=== PATIENT | female | born 1965 | race Caucasian/White ===

== ENCOUNTER 2016-12-30 08:15 | Outpatient (RCR) ==
--- NOTE | 2016-12-28 15:20 | RS.OPPTEV2 ---
Date of Note: 12/28/16 Visit #: 1 Date of Evaluation: 12/28/16 Payer Source: Insurance Surgery Performed?: No Treatment Diagnosis: Left shoulder pain History of Condition/Mechanism of Injury:: Patient reports no known injury. Reports pain has just progressively gotten worse. Prior Level of Function.....Patient was independent with: ADL's, Self Care, Work /Vocation, Caregiving, Ambulation/Mobility, Community Integration/Access Functional Limitations: Sleep, Self Care, ADL's, Reaching, Pushing, Pulling, Lifting, Carrying, Community Access/Integration Current Subjective/complaints:: Patient reports she was told she has a tiny tear in the RTC of the left shoulder and that it is not significant enough for surgery. States the shoulder hurts mainly at night and with reaching. States she has had two injections, the most recent helped and was received a week or two ago. She denies tingling or numbness into the right UE. She has difficulty laying on the left shoulder. She has to change positions frequently due to pain. Treatment Side (optional): Left Medical History Medical History: Unremarkable Smoking Status: Never smoker Diagnostic Testing/Imaging:: States MRI showed a "tiny" tear in a rotator cuff muscle. Requested copy of MRI results. Hx Home Medications: Meloxicam Patient's Goals: Her goal is to get relief of left shoulder pain. Pain Assessment - Pain Description Pain Location: left shoulder Pain Description: Sharp (with reaching), Aching Current Pain Intensity: 8/10 Worst Pain Intensity: 10/10 Functional Outcome Measure UE Functional Index: 50 (50/80=37.5% impairment) - G Codes & Severity Modifier G Codes & Modifier: NA Source of G Code score: NA Observation - Observation Posture: Forward Head, Rounded Shoulders Handedness: Right Shoulder ROM: Right WFL's Shoulder Muscle Strength: Right WFL's (generally 4+/5) - Left Shoulder ROM Left Shoulder Flexion: 95 (degrees AROM, pain starts at 80 degrees) Left Shoulder Abduction: 85 (degrees AROM) Left Shoulder External Rotation: 42 (degrees AROM) Left Shoulder ROM Limitations: Pain Comments: Passive flexion with pain stopping motion at 95 degrees. - Left Shoulder Strength Left Shoulder Flexion: 4 Good Left Shoulder Extension: 4+ Good + Left Shoulder Abduction: 4 Good Left Shoulder Adduction: 4+ Good + Left Shoulder External Rotation: 4 Good Left Shoulder Internal Rotation: 4- Good- - Special Tests Shoulder Empty Can (Supraspinatus) Test: Positive Left Shoulder Speed's Sign Test: Positive Left Shoulder Drop Arm Test: Negative Left Shoulder Hassan-Manuel Impingement Test: Positive Left In Tube Conversion Technician Strength Left Hand In Tube Conversion Technician Strength: 42 lbs. Right Hand In Tube Conversion Technician Strength: 50 lbs. Dynamometer Testing Position: 2nd Position Palpation Comments:: Patient reports pain over the long head of the biceps tendon in the bicipital groove of the left shoulder. Tenderness with moderate pressure over the insertion of the supraspinatus tendon. Sensation - Sensation Right Upper Extremity: Intact/Normal Left Upper Extremity: Intact/Normal Interventions - Exercise/Activities/Manual Therapy Exercises/Activities: Patient instructed in HEP of pendulm exercises, scapular retraction, and RTC series in pendulum position . Advised to perform RTC in a pain-free range. Manual Therapy: NA HOME EXERCISE PROGRAM: pendulm exercises, scapular retraction, and RTC series in pendulum position . Advised to perform RTC in a pain-free range - Charges Total Direct Minutes: 45 mins Total Treatment Time: 45 mins Procedures billed for this date of service:: LUIS F Gunn Assessment Assessment: Patient presents to therapy with a diagnosis of a tear of the left rotator cuff. She demonstrates functional AROM, but pain makes using the left UE for selfcare, ADL's, and functional reaching difficult. She demonstrates general weakness of the left shoulder. She will benefit from modalities and GH joint strengthening to reduce her pain. Patient will also benefit from posture education and exercises to reduce strain on RTC . Patient Education: Education of diagnosis, Body/Joint mechanics, Home Exercise Program, Home Safety, Activity Modification, Education of Plan of Care Rehab Potential: Good Short Term Goals Goal #1: Patient independent in basic HEP. Goal to be met by: 01/11/17 Goal #2: Left shoulder AROM to 120 degrees without pain. Goal to be met by: 01/11/17 Goal #3: Pt to demonstrate improved postural awareness. Goal to be met by: 01/11/17 Goal #4: Right shoulder strength 4+/5 throughout. Goal to be met by: 01/11/17 [facility] Goals Goal #1: Pt knows HEP and to cont. Ex's to maintain functional level at D/C. Goal to be met by: 02/01/17 Goal #2: Score on UE functional scale improved to <15% impairment. Goal to be met by: 02/01/17 Goal #3: Pt able to use left UE for selfcare, ADL's,and functional reaching w/o pain Goal to be met by: 02/01/17 Goal #4: Patient able to sleep at night without waking from left shoulder pain. Goal to be met by: 02/01/17 Plan - Treatment to be Provided Procedures: Therapeutic Exercises, Therapeutic Activity, Patient Education Modalities: Ultrasound/Phonophoresis, Cryotherapy, Hot Packs - Treatment Plan Frequency: 2-3 X week Duration: 3 weeks ORDER # VISITS AND/OR THROUGH DATE: 02/01/17 - Treatment Code (1) Shoulder pain, left Qualifiers: Chronicity: acute Qualified Description: Acute pain of left shoulder Qualifier Code(s): (M25.512) Pain in left shoulder (2) Rotator cuff tear Qualifiers: Rotator cuff tear extent: unspecified tear extent Laterality: left Qualified Description: Tear of left rotator cuff, unspecified tear extent Qualifier Code(s): (M75.102) Unspecified rotator cuff tear or rupture of left shoulder, not specified as traumatic
--- NOTE | 2016-12-30 09:26 | RS.OPPTDN ---
Subjective Date of Note: 12/30/16 Visit #: 2 Date of Evaluation: 12/28/16 Payer Source: Insurance Treatment Diagnosis: Left shoulder pain Current Subjective/complaints:: Patient reports getting to try her HEP a few times. States she has difficulty relaxing with pendulum exercise. Reports more discomfort with abduction during RTC series, but remembered to keep ROM within pain-free range. Reports shoulder feels pretty good after treatment. Pain Assessment - Pain Description Pain Location: left shoulder Pain Description: Sharp (with reaching), Aching Current Pain Intensity: not rated - Treatment Modality: Ultrasound Parameters/Method Applied: 3 mins @ 1.5 w/cm2 continuous, 6 mins @ 1.0 w/cm2 pulsed 20% over insertion site of supraspinatus tendon. Patient Position: Sitting - Heat/Cryotherapy Treatment: Hot Pack (X 15 mins to left shoulder prior to US) Interventions - Exercise/Activities/Manual Therapy Exercises/Activities: Patient demonstrated RTC series, stating abduction causes most discomfort. Pt performs RTC series correctly. Performed resisted scapular stabilization with blue tubing pulling into shoulder flexion. Patient given red theraband and instructed in scapular retraction. Advised she could try the pendulum exercise and RTC series while lying prone on her bed with the left arm hanging off the side. Total minutes of Exercise: 16 mins Manual Therapy: NA HOME EXERCISE PROGRAM: pendulm exercises, scapular retraction, and RTC series in pendulum position . Advised to perform RTC in a pain-free range - Charges Total Direct Minutes: 25 mins Total Treatment Time: 40 mins Procedures billed for this date of service:: HP, US, EX Assessment: Patient demonstrates being receptive to instructions and compliant with HEP. She reports less pain following treatment today. She will benefit from continued activities and exercises to reduce swelling and strengthening the GH joint. Patient Education: Education of diagnosis, Body/Joint mechanics, Home Exercise Program Patient demonstrates compliance with HEP?: Yes Short Term Goals Goal #1: Patient independent in basic HEP. Goal to be met by: 01/11/17 Progress towards Goal:: Progressing Goal #2: Left shoulder AROM to 120 degrees without pain. Goal to be met by: 01/11/17 Goal #3: Pt to demonstrate improved postural awareness. Goal to be met by: 01/11/17 Progress towards Goal:: Progressing Goal #4: Right shoulder strength 4+/5 throughout. Goal to be met by: 01/11/17 Correction Goals Goal #1: Pt knows HEP and to cont. Ex's to maintain functional level at D/C. Goal to be met by: 02/01/17 Goal #2: Score on UE functional scale improved to <15% impairment. Goal to be met by: 02/01/17 Goal #3: Pt able to use left UE for selfcare, ADL's,and functional reaching w/o pain Goal to be met by: 02/01/17 Goal #4: Patient able to sleep at night without waking from left shoulder pain. Goal to be met by: 02/01/17 Plan PLAN OF CARE EXPIRES ON:: 02/01/17 ORDER # VISITS AND/OR THROUGH DATE: 02/01/17 PLAN: Progress Exercises
== END 2017-01-01 ==
PROVIDERS: ATTEND Orthopaedic Surgery
DX: M75.102 Unspecified rotator cuff tear or rupture of left shoulder, not specified as traumatic (principal)

== ENCOUNTER 2017-01-10 08:15 | Outpatient (RCR) ==
--- NOTE | 2017-01-02 09:00 | RS.OPPTDN ---
Subjective Date of Note: 01/02/17 Visit #: 3 Date of Evaluation: 12/28/16 Payer Source: Insurance Treatment Diagnosis: Left shoulder pain Current Subjective/complaints:: Patient reports shoulder felt better after last visit. States she is performing exercises with the red theraband. Pain Assessment - Pain Description Pain Location: left shoulder Current Pain Intensity: not rated - Treatment Modality: Ultrasound Parameters/Method Applied: 1.5 w/cm2 X 5 mins continuous, thne 1.2 w/cm2 @ 20% pulsed X 5 mins to the right shoulder with emphasis over the insertion site of the supraspinatus tendons. Patient Position: Supine - Heat/Cryotherapy Treatment: Hot Pack (X15 mins to right shoulder ) Interventions - Exercise/Activities/Manual Therapy Exercises/Activities: Performed resisted scapular stabilization with blue tubing pulling into shoulder flexion. Also performed scapular retraction with red theraband X 15 reps. Total minutes of Exercise: X 6 mins Manual Therapy: NA HOME EXERCISE PROGRAM: pendulm exercises, scapular retraction, and RTC series in pendulum position . Advised to perform RTC in a pain-free range - Charges Total Direct Minutes: 16 mins Total Treatment Time: 31 mins Procedures billed for this date of service:: HP, US Assessment: Patient reports the left renetta feels better following last treatment sessions. Reports performing HEP in pain free range. Patient demonstrates compliance with HEP?: Yes Short Term Goals Goal #1: Patient independent in basic HEP. Goal to be met by: 01/11/17 Progress towards Goal:: Progressing Goal #2: Left shoulder AROM to 120 degrees without pain. Goal to be met by: 01/11/17 Goal #3: Pt to demonstrate improved postural awareness. Goal to be met by: 01/11/17 Progress towards Goal:: Progressing Goal #4: Right shoulder strength 4+/5 throughout. Goal to be met by: 01/11/17 Banquet Chef Goals Goal #1: Pt knows HEP and to cont. Ex's to maintain functional level at D/C. Goal to be met by: 02/01/17 Goal #2: Score on UE functional scale improved to <15% impairment. Goal to be met by: 02/01/17 Goal #3: Pt able to use left UE for selfcare, ADL's,and functional reaching w/o pain Goal to be met by: 02/01/17 Goal #4: Patient able to sleep at night without waking from left shoulder pain. Goal to be met by: 02/01/17 Plan PLAN OF CARE EXPIRES ON:: 02/01/17 ORDER # VISITS AND/OR THROUGH DATE: 02/01/17 PLAN: Progress Exercises
--- NOTE | 2017-01-05 10:50 | RS.OPPTDN ---
Subjective Date of Note: 01/05/17 Visit #: 4 Date of Evaluation: 12/28/16 Payer Source: Insurance Treatment Diagnosis: Left shoulder pain Current Subjective/complaints:: Patient c/o ache today due to weather. She mentions the R shoulder is beginning to hurt too. She is unsure if it from compensation or not, but does say she has been performing the same HEP for that shoulder too. Reports continued difficulty with fastening undergarments and says she can raise her arm above her head at times with no pain, and other times , it is very painful. Pain Assessment - Pain Description Pain Location: left shoulder Pain Description: Tightness, Aching Current Pain Intensity: not rated - Treatment Modality: Ultrasound Parameters/Method Applied: continuous @ 1.5 w/cm2 x 5 mins to the L shoulder and UT and then 5 mins pulsed @ 1.0 w/cm2 Patient Position: Sitting - Heat/Cryotherapy Treatment: Hot Pack (L UT and shoulder in sitting x 20) Interventions - Exercise/Activities/Manual Therapy Exercises/Activities: Performed shoulder shrugs, scap adduction, isometric IR/ER , 1# wand for bilateral UE flexion, Red tband for scap retraction, shoulder flexion, extension, bilateral shoulder ER. All x 10 reps. Total minutes of Exercise: 20 Manual Therapy: NA HOME EXERCISE PROGRAM: pendulm exercises, scapular retraction, and RTC series in pendulum position . Advised to perform RTC in a pain-free range - Charges Total Direct Minutes: 30 Total Treatment Time: 50 Procedures billed for this date of service:: hp, u/s, ex Assessment: Patient admits soreness improving with treatment today and able to perform therex without any grimacing or c/o's verbally. She should improve with further strengthening. Patient Education: Education of diagnosis, Body/Joint mechanics, Home Exercise Program, Home Safety, Activity Modification, Education of Plan of Care Patient demonstrates compliance with HEP?: Yes Short Term Goals Goal #1: Patient independent in basic HEP. Goal to be met by: 01/11/17 Progress towards Goal:: Progressing Goal #2: Left shoulder AROM to 120 degrees without pain. Goal to be met by: 01/11/17 Goal #3: Pt to demonstrate improved postural awareness. Goal to be met by: 01/11/17 Progress towards Goal:: Progressing Goal #4: Right shoulder strength 4+/5 throughout. Goal to be met by: 01/11/17 Senior Game Developer Goals Goal #1: Pt knows HEP and to cont. Ex's to maintain functional level at D/C. Goal to be met by: 02/01/17 Goal #2: Score on UE functional scale improved to <15% impairment. Goal to be met by: 02/01/17 Goal #3: Pt able to use left UE for selfcare, ADL's,and functional reaching w/o pain Goal to be met by: 02/01/17 Goal #4: Patient able to sleep at night without waking from left shoulder pain. Goal to be met by: 02/01/17 Plan PLAN OF CARE EXPIRES ON:: 02/01/17 ORDER # VISITS AND/OR THROUGH DATE: 02/01/17 PLAN: Progress Exercises
--- NOTE | 2017-01-10 09:57 | RS.OPPTDN ---
Subjective Date of Note: 01/10/17 Visit #: 5 Date of Evaluation: 12/28/16 Payer Source: Insurance Treatment Diagnosis: Left shoulder pain Current Subjective/complaints:: Patient says her arm feels the same. She describes it as someone had "frogged" her in the upper L arm. Pain Assessment - Pain Description Pain Location: left shoulder Pain Description: Tightness, Aching Current Pain Intensity: not rated - Treatment Modality: Ultrasound Parameters/Method Applied: continuous @ 1.5 w/cm2 x 8 mins, 3 mins pulsed @ 1.0 w/cm2 to L mid deltoid Patient Position: Sitting - Heat/Cryotherapy Treatment: Hot Pack (over the L shoulder in sitting x 20 mins) Interventions - Exercise/Activities/Manual Therapy Exercises/Activities: Performed shoulder shrugs, scap adduction, isometric IR/ER , 1# wand for bilateral UE flexion, PROM all dir, isometric shoulder flex/ext 2x5. Total minutes of Exercise: 10 Manual Therapy: NA HOME EXERCISE PROGRAM: pendulm exercises, scapular retraction, and RTC series in pendulum position . Advised to perform RTC in a pain-free range - Charges Total Direct Minutes: 21 Total Treatment Time: 41 Procedures billed for this date of service:: hp, u/s, MT Assessment: Patient unable to see significant change, but felt MT helped today. She demo good mobility, but does have soreness with resisted IR/ER. Patient Education: Education of diagnosis, Body/Joint mechanics, Home Exercise Program, Home Safety, Activity Modification, Education of Plan of Care Patient demonstrates compliance with HEP?: Yes Short Term Goals Goal #1: Patient independent in basic HEP. Goal to be met by: 01/11/17 Progress towards Goal:: Progressing Goal #2: Left shoulder AROM to 120 degrees without pain. Goal to be met by: 01/11/17 Goal #3: Pt to demonstrate improved postural awareness. Goal to be met by: 01/11/17 Progress towards Goal:: Progressing Goal #4: Right shoulder strength 4+/5 throughout. Goal to be met by: 01/11/17 Transportation Museum Helper Goals Goal #1: Pt knows HEP and to cont. Ex's to maintain functional level at D/C. Goal to be met by: 02/01/17 Goal #2: Score on UE functional scale improved to <15% impairment. Goal to be met by: 02/01/17 Goal #3: Pt able to use left UE for selfcare, ADL's,and functional reaching w/o pain Goal to be met by: 02/01/17 Goal #4: Patient able to sleep at night without waking from left shoulder pain. Goal to be met by: 02/01/17 Plan PLAN OF CARE EXPIRES ON:: 02/01/17 ORDER # VISITS AND/OR THROUGH DATE: 02/01/17 PLAN: Progress Exercises
--- NOTE | 2017-01-13 08:59 | RS.CXNS ---
Date of scheduled appointment: 01/13/17 Type: Cancel Reason for Cancel/NS: not feeling well, will call to reschedule next week
--- NOTE | 2017-02-08 15:30 | RS.QUICKDC ---
Discharge from PT Date of Discharge: 02/08/17 Number of Visits: 5 Reason for Discharge: Patient had received treatment of moist heat, u/s, MT to the neck and shoulder , and therex. She had reported very little change in symptoms and c/o tenderness to the L upper arm and limited ROM. She received a HEP and education on diagnosis and treatment provided. No goals were met as she cancelled her last scheduled appt and did not contact us for further PT. See daily notes for specific information.
== END 2017-02-01 ==
PROVIDERS: ATTEND Orthopaedic Surgery
DX: M75.102 Unspecified rotator cuff tear or rupture of left shoulder, not specified as traumatic (principal)

== ENCOUNTER 2017-03-02 10:00 | Outpatient (RCR) ==
--- NOTE | 2017-02-10 15:05 | RS.OPPTEV2 ---
Date of Note: 02/09/17 Visit #: 1 Date of Evaluation: 02/09/17 Payer Source: Insurance Surgery Performed?: No Treatment Diagnosis: UE pain, cervical radiculopathy History of Condition/Mechanism of Injury:: Patient reports no known injury. Reports pain has progressive increased. Prior Level of Function.....Patient was independent with: ADL's, Self Care, Work /Vocation, Caregiving, Ambulation/Mobility, Community Integration/Access Functional Limitations: Sleep, Self Care, ADL's, Reaching, Pushing, Pulling, Lifting, Carrying, Community Access/Integration Current Subjective/complaints:: Patient reports having continued left shoulder UE pain and now right UE pain. States she has had symptoms for approximately seven months. States she hurts a lot at night. States the left shoulder still hurts with certain movements. She was referred for further tests and has being diagnosed with cervical spine involvement and was sent for therapy. Medical History Medical History: Unremarkable Smoking Status: Never smoker Hx Home Medications: Neurontin 300 mg, 2X day Patient's Goals: Her goal is to get relief of UE's symptoms. Pain Assessment - Pain Description Pain Location: left shoulder and upper arm Current Pain Intensity: 7/10 Worst Pain Intensity: 9/10 Functional Outcome Measure Neck Disability Index: 12 - G Codes & Severity Modifier G Codes & Modifier: NA Source of G Code score: NA Observation - Observation Posture: Forward Head, Rounded Shoulders Handedness: Right - ROM Comments: Cervical AROM and shoulder AROM is WFL's. Cervical extension and right rotation at end range cause slight increased discomfort into the left scapula. - Strength Comments: 5/5 throughout bilateral UE's. - Special Tests Foraminal Compression: Negative Left, Negative Right VA Test: Negative Thoracic Outlet Test: Negative Left, Negative Right - Special Tests Shoulder Empty Can (Supraspinatus) Test: Positive Left Shoulder Drop Arm Test: Negative Left Shoulder Hassan-Manuel Impingement Test: Positive Left Scheduler Maintenance Strength Left Hand Scheduler Maintenance Strength: 40 lbs. Right Hand Scheduler Maintenance Strength: 50 lbs. Dynamometer Testing Position: 2nd Position Palpation Comments:: Patient demonstrates moderate increased muscle tone along bilateral upper traps and cervical paraspinals. Reports no tenderness throughout this area or with palpation to the suboccipital myofascia. Sensation - Sensation Right Upper Extremity: Intact/Normal Left Upper Extremity: Intact/Normal - Heat/Cryotherapy Treatment: Hot Pack (X 10 mins to cervical spine prior to traction) - Traction Treatment Method: Mechanical, Intermittent, Cervical Patient Position: Supine Amount of Force Applied: 14-15 lbs. Hold Time: 30 sec Rest Time: 5 sec Interventions - Exercise/Activities/Manual Therapy Exercises/Activities: Patient instructed in stretching to the cervical spine into rotation and lateral flexion. Advised to perform these as long as they don 't cause increased radicular symptoms. Also instructed in scapular retraction and scapular depression. Manual Therapy: NA HOME EXERCISE PROGRAM: stretching to the cervical spine into rotation and lateral flexion. Advised to perform these as long as they don't cause increased radicular symptoms. Also instructed in scapular retraction and scapular depression. - Charges Total Direct Minutes: 50 mins Total Treatment Time: 50 mins Procedures billed for this date of service:: LUIS F Gunn Assessment Assessment: Patient presents to therapy with a diagnosis of cervical radiculopathy. She reports constant symptoms into the left UE and occasional symptoms into the right. She reports no impaired sensation and no lack of strength in the UE's. She does exhibit moderate increased muscle tone along the upper traps and cervical paraspinals. End range cervical right rotation and extension causes radiating pain to the left scapula. She also demonstrates symptoms that are overlapping from the left RTC. She will benefit from treatment of cervical traction, stretching, and postural exercises to reduce her radiating symptoms. Patient Education: Education of diagnosis, Body/Joint mechanics, Home Exercise Program, Home Safety, Activity Modification, Education of Plan of Care Rehab Potential: Good Short Term Goals Goal #1: Patient independent in basic HEP. Goal to be met by: 02/24/17 Goal #2: Pt to report left UE symptoms no longer constant. Goal to be met by: 02/24/17 Goal #3: Radiating symptoms localized. Goal to be met by: 02/24/17 Goal #4: Muscle tone at bilateral upper traps decreased to minimal. Goal to be met by: 02/24/17 Mortar Mixer Operator Goals Goal #1: Pt knows HEP and to cont. Ex's to maintain functional level at D/C. Goal to be met by: 03/27/17 Goal #2: Score on Neck Disability Index improved to 0. Goal to be met by: 03/27/17 Goal #3: Pt to perform ADL's & functional activities w/o radiating pain into UE' s. Goal to be met by: 03/27/17 Goal #4: Pt to demonstrate improved postural awareness. Goal to be met by: 03/27/17 Plan - Treatment to be Provided Procedures: Therapeutic Exercises, Therapeutic Activity, Manual Therapy, Patient Education Modalities: Electrical Stimulation, Ultrasound/Phonophoresis, Cryotherapy, Hot Packs, Mechanical Traction (cervical) - Treatment Plan Frequency: 2 X week Duration: 6 weeks ORDER # VISITS AND/OR THROUGH DATE: 03/27/17 - Treatment Code (1) Cervical radiculopathy Comments: M54.12
--- NOTE | 2017-02-13 10:51 | RS.CXNS ---
Date of scheduled appointment: 02/13/17 Type: No Show
--- NOTE | 2017-02-14 12:01 | RS.OPPTDN ---
Subjective Date of Note: 02/14/17 Visit #: 2 Date of Evaluation: 02/09/17 Payer Source: Insurance Treatment Diagnosis: UE pain, cervical radiculopathy Current Subjective/complaints:: Patient says traction felt good, but hopes she will experience extended relief with progressive traction poundage. She arrives with her own heat pad while sitting in waiting room. Pain Assessment - Pain Description Pain Location: left shoulder and upper arm Pain Description: Tightness Current Pain Intensity: 4-5/10 - Treatment Modality: Ultrasound Parameters/Method Applied: continuous @ 1.5 w/cm2 x 12 mins after traction bilateral UT Patient Position: Sitting - Traction Treatment Method: Mechanical, Intermittent, Cervical Patient Position: Supine Amount of Force Applied: 16-17 Hold Time: 25 Rest Time: 5 Duration of treatment: 16 Traction Treatment Comment: 2 steps with 1# minimal hold Interventions - Exercise/Activities/Manual Therapy Exercises/Activities: Reviewed HEP and postural techniques. Manual Therapy: NA HOME EXERCISE PROGRAM: stretching to the cervical spine into rotation and lateral flexion. Advised to perform these as long as they don't cause increased radicular symptoms. Also instructed in scapular retraction and scapular depression. - Charges Total Direct Minutes: 12 Total Treatment Time: 29 Procedures billed for this date of service:: u/s, mechanical traction Assessment: Patient experiencing relief from today's traction. She remains attentive to progressing traction and techniques. She demo mod muscle guarding to Bilateral UT, but primarily to the L. Patient Education: Education of diagnosis, Body/Joint mechanics, Home Exercise Program, Home Safety, Activity Modification, Education of Plan of Care Patient demonstrates compliance with HEP?: Yes Short Term Goals Goal #1: Patient independent in basic HEP. Goal to be met by: 02/24/17 Progress towards Goal:: Progressing Goal #2: Pt to report left UE symptoms no longer constant. Goal to be met by: 02/24/17 Goal #3: Radiating symptoms localized. Goal to be met by: 02/24/17 Goal #4: Muscle tone at bilateral upper traps decreased to minimal. Goal to be met by: 02/24/17 Director Security Risk Management Goals Goal #1: Pt knows HEP and to cont. Ex's to maintain functional level at D/C. Goal to be met by: 03/27/17 Goal #2: Score on Neck Disability Index improved to 0. Goal to be met by: 03/27/17 Goal #3: Pt to perform ADL's & functional activities w/o radiating pain into UE' s. Goal to be met by: 03/27/17 Goal #4: Pt to demonstrate improved postural awareness. Goal to be met by: 03/27/17 Plan PLAN OF CARE EXPIRES ON:: 03/27/17 ORDER # VISITS AND/OR THROUGH DATE: 03/27/17 PLAN: Continue Plan of Care
--- NOTE | 2017-02-16 14:29 | RS.OPPTDN ---
Subjective Date of Note: 02/16/17 Visit #: 3 Date of Evaluation: 02/09/17 Payer Source: Insurance Treatment Diagnosis: UE pain, cervical radiculopathy Current Subjective/complaints:: Patient reports treatment is helping neck pain. Following treatment session, patient reports continued discomfort at the left upper arm. Pain Assessment - Pain Description Pain Location: left shoulder and upper arm Pain Description: Tightness Current Pain Intensity: mild to mod at neck, little to no discomfort following treatment - Treatment Modality: Ultrasound Parameters/Method Applied: [id number] at 1.5w/cm2 to the bilateral cervical paraspinals and upper traps following cervical traction. Patient Position: Sitting - Traction Treatment Method: Mechanical, Intermittent, Cervical Patient Position: Supine Amount of Force Applied: 19# Hold Time: 35sec Rest Time: 5sec Duration of treatment: 20mins Interventions - Exercise/Activities/Manual Therapy Exercises/Activities: Discussed HEP and added isometric cervical retraction Total minutes of Exercise: 3mins Manual Therapy: NA HOME EXERCISE PROGRAM: stretching to the cervical spine into rotation and lateral flexion. Advised to perform these as long as they don't cause increased radicular symptoms. Also instructed in scapular retraction and scapular depression. - Charges Total Direct Minutes: 15mins Total Treatment Time: 35mins Procedures billed for this date of service:: TX mechanical, US Assessment: Patient responding to cervical traction. May benefit from progressing shoulder strengthening exercises. Patient Education: Education of diagnosis, Body/Joint mechanics, Home Exercise Program Patient demonstrates compliance with HEP?: Yes Short Term Goals Goal #1: Patient independent in basic HEP. Goal to be met by: 02/24/17 Progress towards Goal:: Progressing Goal #2: Pt to report left UE symptoms no longer constant. Goal to be met by: 02/24/17 Progress towards Goal:: Progressing Goal #3: Radiating symptoms localized. Goal to be met by: 02/24/17 Progress towards Goal:: Progressing Goal #4: Muscle tone at bilateral upper traps decreased to minimal. Goal to be met by: 02/24/17 Alf Goals Goal #1: Pt knows HEP and to cont. Ex's to maintain functional level at D/C. Goal to be met by: 03/27/17 Goal #2: Score on Neck Disability Index improved to 0. Goal to be met by: 03/27/17 Goal #3: Pt to perform ADL's & functional activities w/o radiating pain into UE' s. Goal to be met by: 03/27/17 Goal #4: Pt to demonstrate improved postural awareness. Goal to be met by: 03/27/17 Plan PLAN OF CARE EXPIRES ON:: 03/27/17 ORDER # VISITS AND/OR THROUGH DATE: 03/27/17 PLAN: Continue Plan of Care
--- NOTE | 2017-02-21 14:20 | RS.OPPTDN ---
Subjective Date of Note: 02/21/17 Visit #: 4 Date of Evaluation: 02/09/17 Payer Source: Insurance Treatment Diagnosis: UE pain, cervical radiculopathy Current Subjective/complaints:: Patient reports neck pain has resolved. Continues to report pain at the left anterior shoulder joint that runs along the biceps. Reports left shoulder and upper arm pain is much better following treatment. Pain Assessment - Pain Description Pain Location: left shoulder and upper arm Pain Description: Tightness Current Pain Intensity: no neck pain, mild to mod pain at left anterior shoulder joint - Treatment Modality: Ultrasound Parameters/Method Applied: [id number] to the 1.5w/cm to the left anterior shoulder joint and along the biceps prior to MT and EX. patient in sitting. Patient Position: Sitting - Heat/Cryotherapy Treatment: Hot Pack ([id number] to the left shoulder prior to US. Patient in sitting. ), Cryotherapy ([id number] to the left shoulder following treatment. Patient in sitting. ) Interventions - Exercise/Activities/Manual Therapy Exercises/Activities: Discussed HEP and added bilateral shoulder ER with red theraband and increased to green theraband for scapular retraction. Total minutes of Exercise: 5mins Manual Therapy: [id number] Friction massage to the proximal biceps tendon and into biceps muscle belly. Total minutes of Manual Therapy: 15mins HOME EXERCISE PROGRAM: stretching to the cervical spine into rotation and lateral flexion. Advised to perform these as long as they don't cause increased radicular symptoms. Also instructed in scapular retraction and scapular depression. - Charges Total Direct Minutes: 30mins Total Treatment Time: 57mins Procedures billed for this date of service:: HP, US, MT Assessment: Patient responds well to treatment. Symptoms now seem more related to shoulder joint mechancis and cervical radiculopathy seems to have resolved. She should beenfit from friction massage and progressive shoulder stability exercises. Patient Education: Body/Joint mechanics, Home Exercise Program Patient demonstrates compliance with HEP?: Yes Short Term Goals Goal #1: Patient independent in basic HEP. Goal to be met by: 02/24/17 (50%) Progress towards Goal:: Progressing Goal #2: Pt to report left UE symptoms no longer constant. Goal to be met by: 02/24/17 Progress towards Goal:: Progressing Goal #3: Radiating symptoms localized. Goal to be met by: 02/24/17 Progress towards Goal:: Progressing Goal #4: Muscle tone at bilateral upper traps decreased to minimal. Goal to be met by: 02/24/17 Pitch Filler Goals Goal #1: Pt knows HEP and to cont. Ex's to maintain functional level at D/C. Goal to be met by: 03/27/17 Goal #2: Score on Neck Disability Index improved to 0. Goal to be met by: 03/27/17 Goal #3: Pt to perform ADL's & functional activities w/o radiating pain into UE' s. Goal to be met by: 03/27/17 Goal #4: Pt to demonstrate improved postural awareness. Goal to be met by: 03/27/17 Plan PLAN OF CARE EXPIRES ON:: 03/27/17 ORDER # VISITS AND/OR THROUGH DATE: 03/27/17 PLAN: Continue Plan of Care
--- NOTE | 2017-02-23 11:48 | RS.OPPTDN ---
Subjective Date of Note: 02/23/17 Visit #: 5 Date of Evaluation: 02/09/17 Payer Source: Insurance Treatment Diagnosis: UE pain, cervical radiculopathy Current Subjective/complaints:: Patient reports no increased soreness after last session.She reports the aching in the R shoulder increases at night while trying to sleep. Pain Assessment - Pain Description Pain Location: left shoulder and upper arm Pain Description: Tightness Current Pain Intensity: mild to mod pain at left anterior shoulder joint, increases with reaching - Treatment Modality: Ultrasound Parameters/Method Applied: 10 mins. @ 1.5 w/cm2 ,continuous mode to L shoulder region. Patient Position: Sitting - Heat/Cryotherapy Treatment: Hot Pack (20 mins. prior to US,manual therapy) Interventions - Exercise/Activities/Manual Therapy Exercises/Activities: Discussed HEP and reviewed while receiving manual therapy. Total minutes of Exercise: 0 Manual Therapy: x20 mins. massage to the proximal biceps tendon and into biceps muscle belly. Total minutes of Manual Therapy: 20 HOME EXERCISE PROGRAM: stretching to the cervical spine into rotation and lateral flexion. Advised to perform these as long as they don't cause increased radicular symptoms. Also instructed in scapular retraction and scapular depression. - Charges Total Direct Minutes: 30 Total Treatment Time: 50 Procedures billed for this date of service:: hp,US,manual therapy Assessment: Patient reports minimal L shoulder pain at rest today ,but increases significantly with attempting behind her (internal rotation).She reports the neck pain is resolved. Patient Education: Education of diagnosis, Body/Joint mechanics, Home Exercise Program, Home Safety, Activity Modification, Education of Plan of Care Patient demonstrates compliance with HEP?: Yes Short Term Goals Goal #1: Patient independent in basic HEP. Goal to be met by: 02/24/17 (50%) Progress towards Goal:: Progressing Goal #2: Pt to report left UE symptoms no longer constant. Goal to be met by: 02/24/17 Progress towards Goal:: Progressing Goal #3: Radiating symptoms localized. Goal to be met by: 02/24/17 Progress towards Goal:: Progressing Goal #4: Muscle tone at bilateral upper traps decreased to minimal. Goal to be met by: 02/24/17 Labor Relations Representative Goals Goal #1: Pt knows HEP and to cont. Ex's to maintain functional level at D/C. Goal to be met by: 03/27/17 Goal #2: Score on Neck Disability Index improved to 0. Goal to be met by: 03/27/17 Goal #3: Pt to perform ADL's & functional activities w/o radiating pain into UE' s. Goal to be met by: 03/27/17 Goal #4: Pt to demonstrate improved postural awareness. Goal to be met by: 03/27/17 Plan PLAN OF CARE EXPIRES ON:: 03/27/17 ORDER # VISITS AND/OR THROUGH DATE: 03/27/17 PLAN: Continue Plan of Care
--- NOTE | 2017-02-28 12:09 | RS.OPPTDN ---
Subjective Date of Note: 02/28/17 Visit #: 6 Date of Evaluation: 02/09/17 Payer Source: Insurance Treatment Diagnosis: UE pain, cervical radiculopathy Current Subjective/complaints:: Patient reports continued progress with left shoulder pain. Pain Assessment - Pain Description Pain Location: left shoulder and upper arm Pain Description: Tightness Current Pain Intensity: mild to mod pain at left anterior shoulder joint - Treatment Modality: Ultrasound Parameters/Method Applied: [id number] at 1.5w/cm2 to the left shoulder joint and upper arm. Patient Position: Sitting Interventions - Exercise/Activities/Manual Therapy Exercises/Activities: [id number] PROM to the left shoulder. Long passive stretching of biceps and shoulder joint into horizontal abduction. Isometric shoulder flexion, extension, add, abd, IR, ER, and biceps. Discussed HEP and reviewed while receiving manual therapy. Total minutes of Exercise: 14mins Manual Therapy: x15 mins. massage to the proximal biceps tendon and into biceps muscle belly. Total minutes of Manual Therapy: 15mins HOME EXERCISE PROGRAM: stretching to the cervical spine into rotation and lateral flexion. Advised to perform these as long as they don't cause increased radicular symptoms. Also instructed in scapular retraction and scapular depression. - Objective Findings Observations,measurements,etc.: Patient with discomfort with IR of left shoulder joint indicating impingement. - Charges Total Direct Minutes: 41mins Total Treatment Time: 41mins Procedures billed for this date of service:: US, MT, EX Assessment: Patient responding to modalities and friction massage to the biceps tendon. Patient Education: Education of diagnosis, Body/Joint mechanics, Home Exercise Program Patient demonstrates compliance with HEP?: Yes Short Term Goals Goal #1: Patient independent in basic HEP. Goal to be met by: 02/24/17 (70%) Progress towards Goal:: Progressing Goal #2: Pt to report left UE symptoms no longer constant. Goal to be met by: 02/24/17 Progress towards Goal:: Progressing Goal #3: Radiating symptoms localized. Goal to be met by: 02/24/17 Progress towards Goal:: Progressing Goal #4: Muscle tone at bilateral upper traps decreased to minimal. Goal to be met by: 02/24/17 Clay Stain Mixer Goals Goal #1: Pt knows HEP and to cont. Ex's to maintain functional level at D/C. Goal to be met by: 03/27/17 Progress towards goal: Progressing Goal #2: Score on Neck Disability Index improved to 0. Goal to be met by: 03/27/17 Goal #3: Pt to perform ADL's & functional activities w/o radiating pain into UE' s. Goal to be met by: 03/27/17 Progress towards goal: Progressing Goal #4: Pt to demonstrate improved postural awareness. Goal to be met by: 03/27/17 Plan PLAN OF CARE EXPIRES ON:: 03/27/17 ORDER # VISITS AND/OR THROUGH DATE: 03/27/17 PLAN: Progress Exercises (Continue modalites, manual therapy, and progressive exercise to reduce pain and increase patients functional activity level.)
--- NOTE | 2017-03-02 11:21 | RS.OPPTDN ---
Subjective Date of Note: 03/02/17 Visit #: 7 Date of Evaluation: 02/09/17 Payer Source: Insurance Treatment Diagnosis: UE pain, cervical radiculopathy Current Subjective/complaints:: Patient reports improvement in IR of the left shoulder joint. Pain Assessment - Pain Description Pain Location: left shoulder and upper arm Pain Description: Tightness Current Pain Intensity: mild pain at left anterior shoulder joint and mild to mod at upper arm Other Comments regarding Pain:: Patient reports pain with passive flexion to approx 150 degrees. - Treatment Modality: Ultrasound Parameters/Method Applied: [id number] at 1.5w/cm2 to the left shoulder joint and upper arm prior to EX. Patient Position: Sitting Interventions - Exercise/Activities/Manual Therapy Exercises/Activities: [id number] PROM to the left shoulder. Long passive stretching of biceps and shoulder joint into horizontal abduction. Isometric shoulder flexion, extension, add, abd, IR, ER, biceps, and triceps. Ball on the wall. Total minutes of Exercise: 20mins Manual Therapy: [id number]. Friction massage to the proximal biceps tendon and into biceps muscle belly. Total minutes of Manual Therapy: 10mins HOME EXERCISE PROGRAM: stretching to the cervical spine into rotation and lateral flexion. Advised to perform these as long as they don't cause increased radicular symptoms. Also instructed in scapular retraction and scapular depression. - Objective Findings Observations,measurements,etc.: IR to approx 70 degrees actively with discomfort at end range. - Charges Total Direct Minutes: 42mins Total Treatment Time: 42mins Procedures billed for this date of service:: US, MT, EX Assessment: Patient progressing with ROM. Patient Education: Home Exercise Program Patient demonstrates compliance with HEP?: Yes Short Term Goals Goal #1: Patient independent in basic HEP. Goal to be met by: 02/24/17 (80%) Progress towards Goal:: Progressing Goal #2: Pt to report left UE symptoms no longer constant. Goal to be met by: 02/24/17 (50%) Progress towards Goal:: Progressing Goal #3: Radiating symptoms localized. Goal to be met by: 02/24/17 (50%) Progress towards Goal:: Progressing Goal #4: Muscle tone at bilateral upper traps decreased to minimal. Goal to be met by: 02/24/17 (70%) Progress towards Goal:: Progressing Survey Researcher Goals Goal #1: Pt knows HEP and to cont. Ex's to maintain functional level at D/C. Goal to be met by: 03/27/17 Progress towards goal: Progressing Goal #2: Score on Neck Disability Index improved to 0. Goal to be met by: 03/27/17 Goal #3: Pt to perform ADL's & functional activities w/o radiating pain into UE' s. Goal to be met by: 03/27/17 (25%) Progress towards goal: Progressing Goal #4: Pt to demonstrate improved postural awareness. Goal to be met by: 03/27/17 Plan PLAN OF CARE EXPIRES ON:: 03/27/17 ORDER # VISITS AND/OR THROUGH DATE: 03/27/17 PLAN: Continue Plan of Care (Continue modalities and progress exericse to reduce pain and increase functional activity level.)
== END 2017-03-03 ==
PROVIDERS: ATTEND Orthopaedic Surgery Orthopaedic Surgery of the Spine
DX: M54.12 Radiculopathy, cervical region (principal)

== ENCOUNTER 2017-03-08 15:04 | Outpatient (RCR) ==
--- NOTE | 2017-03-08 13:09 | RS.OPPTDN ---
Subjective Date of Note: 03/08/17 Visit #: 8 Date of Evaluation: 02/09/17 Payer Source: Insurance Treatment Diagnosis: UE pain, cervical radiculopathy Current Subjective/complaints:: Patient reports continued improvement in left shoulder AROM, but continues to have pain with end range motion. Pain Assessment - Pain Description Pain Location: left shoulder and upper arm Current Pain Intensity: mild pain at left anterior shoulder joint and mild to mod at upper arm - Treatment Modality: Ultrasound Parameters/Method Applied: [id number] at 1.5w/cm2 to the left shoulder joint and upper arm prior to MT and EX. Patient Position: Sitting Interventions - Exercise/Activities/Manual Therapy Exercises/Activities: [id number] PROM to the left shoulder. Long passive stretching of biceps and shoulder joint into horizontal abduction. Isometric shoulder flexion, extension, add, abd, IR, ER, biceps, and triceps. Ball on the wall. AAROM left shoulder flexion, scaption, and abduction. Total minutes of Exercise: 18mins Manual Therapy: [id number]. Friction massage to the proximal biceps tendon and into biceps muscle belly. Total minutes of Manual Therapy: 10mins HOME EXERCISE PROGRAM: stretching to the cervical spine into rotation and lateral flexion. Advised to perform these as long as they don't cause increased radicular symptoms. Also instructed in scapular retraction and scapular depression. - Objective Findings Observations,measurements,etc.: Patient tolerates AA left shoulder flexion to approx 160 degrees. - Charges Total Direct Minutes: 40mins Total Treatment Time: 40mins Procedures billed for this date of service:: US, MT, EX Assessment: Patient progressing with ROM of the left shoulder. Patient Education: Home Exercise Program Patient demonstrates compliance with HEP?: Yes Short Term Goals Goal #1: Patient independent in basic HEP. Goal to be met by: 02/24/17 (80%) Progress towards Goal:: Progressing Goal #2: Pt to report left UE symptoms no longer constant. Goal to be met by: 02/24/17 (60%) Progress towards Goal:: Progressing Goal #3: Radiating symptoms localized. Goal to be met by: 02/24/17 (70%) Progress towards Goal:: Progressing Goal #4: Muscle tone at bilateral upper traps decreased to minimal. Goal to be met by: 02/24/17 (70%) Progress towards Goal:: Progressing Prison Goals Goal #1: Pt knows HEP and to cont. Ex's to maintain functional level at D/C. Goal to be met by: 03/27/17 Progress towards goal: Progressing Goal #2: Score on Neck Disability Index improved to 0. Goal to be met by: 03/27/17 Goal #3: Pt to perform ADL's & functional activities w/o radiating pain into UE' s. Goal to be met by: 03/27/17 (25%) Progress towards goal: Progressing Goal #4: Pt to demonstrate improved postural awareness. Goal to be met by: 03/27/17 Plan PLAN OF CARE EXPIRES ON:: 03/27/17 ORDER # VISITS AND/OR THROUGH DATE: 03/27/17 PLAN: Continue Plan of Care
--- NOTE | 2017-03-10 13:49 | RS.CXNS ---
Date of scheduled appointment: 03/10/17 Type: No Show
--- NOTE | 2017-03-14 10:03 | RS.CXNS ---
Date of scheduled appointment: 03/14/17 Type: Cancel (sick)
--- NOTE | 2017-03-22 14:41 | RS.QUICKDC ---
Discharge from PT Date of Discharge: 03/22/17 Number of Visits: 8 Reason for Discharge: Patient reported progress with treatment. She reported no neck pain and progress with left shoulder pain. She was independent with HEP on last session attended. The patient missed the last 2 scheduled appointments. No further contact from patient. Discharge at this time.
== END 2017-04-03 ==
PROVIDERS: ATTEND Orthopaedic Surgery Orthopaedic Surgery of the Spine
DX: M54.12 Radiculopathy, cervical region (principal)